=== PATIENT | female | born 1990 | race Caucasian/White ===

== ENCOUNTER 2022-07-14 17:41 | Emergency (ER) | payer OTHER, SELFPAY ==
[2022-07-14 19:35] VITALS: BP 106/61; PULSE 74; RESP 18; TEMP 37.2; O2SAT 100; BMI 24.6
--- NOTE | 2022-07-14 22:46 | ED.GENADULT ---
HPI - General Adult General Chief complaint: Skin/Abscess/Foreign Body Stated complaint: Bump in Left breast with pain Time Seen by Provider: 07/14/22 22:05 Source: patient and translator/interpreter Mode of arrival: ambulatory Limitations: no limitations History of Present Illness HPI narrative: no fam hx of breast cancer no prior care of breast lesion MD complaint: breast mass Onset (ago): year(s) (5) Location: chest (left breast) Radiation: other (none) Severity: mild Pain Consistency: constant Relieving factors: none Exacerbating factors: other (palpation) Associated symptoms: denies other symptoms Treatments prior to arrival: none Related Data Previous Rx's Medication Instructions Recorded ibuprofen 600 mg tablet 600 mg PO Q6H PRN pain #30 tabs 07/14/22 Allergies Allergy/AdvReac Type Severity Reaction Status Date / Time No Known Allergies Allergy Verified 07/14/22 19:41 Review of Systems Review of Systems: Constitutional : No Fever, No Chills ENT/Mouth : No sore throat, No Rhinorrhea Eyes: No Eye Pain, No Swelling, No Redness Cardiovascular : No Chest Pain, No SOB Respiratory : No Cough, No Sputum Gastrointestinal : No Nausea, No Vomiting, No Diarrhea, No abdominal Pain Genitourinary : No Dysuria, No Hematuria Musculoskeletal : No joint pain, No Myalgias, No Joint Swelling Skin : No Skin Lesions, no skin rash, pos breast lesion Neuro : No Weakness, No Numbness, No Headache Psych : No Anxiety, No Depression PMFSH Past Medical History Attestation statement: The following information was validated with the patient. Medical History No pertinent past medical history Social History Social History (Updated 07/14/22 @ 23:34 by Guadalupe Harding DO) Patient Tobacco Use Status: Never used Tobacco Advance Directives: No Advance Directives Information Provided: No Physical Exam ED Vital Signs: Vital Signs - 24 hr 07/14/22 19:35 07/14/22 23:29 Temperature 98.9 F 98.4 F Pulse Rate 74 70 Respiratory Rate 18 16 Blood Pressure 106/61 119/74 Pulse Oximetry 100 98 Oxygen Delivery Method Room Air Room Air BMI result Body Mass Index 24.6 Appearance: Alert. Oriented X3. No acute distress. Eyes: Pupils equal, round and reactive to light. ENT: Pharynx normal. Neck: Normal inspection. Neck supple. CVS: Normal heart rate and rhythm. Pulses normal. Breast: left lower 4 o clock postion 5.5 x 7cm firm mass not very mobile no erythema no fluctuant very tender hard to touch Respiratory: No respiratory distress. Breath sounds normal. Abdomen: Soft and nontender. Skin: Skin warm and dry. Normal skin color. Normal skin turgor. Extremities: No lower extremity edema. Neuro: Oriented X 3. No motor deficit. No sensory deficit. Medical Decision Making MDM Narrative Medical decision making narrative: 31 yo female presenting to ED with 5 years breast mass that does not appear to be abscess - she needs dedicated mammogram and breast ultrasound. No systemic symptoms - given outpatient form for imaging as she has no PCP. No risk factors for breast cancner no family hx. Discharge Plan Discharge Clinical Impression: Breast mass, left Qualifiers: Breast mass location: lower outer quadrant Qualified Code(s): N63.23 - Unspecified lump in the left breast, lower outer quadrant Patient Disposition: Home, Self-Care Instructions: Breast Mass (ED) Additional Instructions: ligue para o n?shayan na segunda-feira e agende melly consulta, se tiver algum problema para fazer o ultrassom, retorne ao pronto-river Prescriptions: New ibuprofen 600 mg tablet 600 mg PO Q6H PRN (Reason: pain) Qty: 30 0RF Interventions: ED Discharge Assessment Last Done: 07/15/22 00:16 Discharge Date/Time: 07/15/22 00:17
[2022-07-14 23:29] VITALS: BP 119/74; PULSE 70; RESP 16; TEMP 36.9; O2SAT 98
--- NOTE | 2022-07-15 00:15 | PC.NURSE ---
Reviewed discharge instructions with pt, used [employer] coffee supervisor on pt phone to go over discharge. pt verbalized understanding. Pt has not sign of distress at this time.
== END 2022-07-15 00:17 | disposition home or self-care (01) ==
PROVIDERS: Emergency Provider Emergency Medicine
DX: N63.23 Unspecified lump in the left breast, lower outer quadrant (principal)
CPT/HCPCS: 99283